=== PATIENT | female | born 1950 | race Caucasian/White ===

== ENCOUNTER 2020-09-24 08:03 | Emergency (ER) | payer MEDICARE ==
[~2020-09-24] VITALS: Ht 170.2 cm; Wt 148.0 kg
--- NOTE | 2020-09-24 08:25 | NUR ---
This pt is visiting from [facility]. She had a mechanical ground level fall this AM while attempting to get in the shower. States her "right knee gave out." Pt states her daughter assisted her to the ground, denies head trauma. Pt is taking warfarin for PE and filter in her groin. PT has right ankle swelling, bruising and pain. CMS intact. PT connected to all monitors. Foot elevated and ice applied. at bedside. Call light in reach.
[2020-09-24] MEDS ORDERED: ONDANSETRON 2MG/ML, 2ML ONE (08:29)
[2020-09-24] MEDS ORDERED: MORPHINE SULFATE 4 MG/ML, 1ML ONE ×2 (08:30→11:17)
[2020-09-24] MEDS ORDERED: ONDANSETRON 2MG/ML, 2ML IVPush ONE (08:30)
[2020-09-24] MEDS ORDERED: SODIUM CHLORIDE FLUSH 10ML SYR IVF ONE (08:30)
[2020-09-24] MEDS: MORPHINE SULFATE 4 MG/ML, 1ML IVPush PRN ×2 (08:39→11:19)
[2020-09-24 09:13] LABS: BASOPHILS % (AUTO) 1 % (0-1); EOSINOPHILS % (AUTO) 5 % (1-7); LYMPHOCYTES % (AUTO) 24 % (22-44); MEAN CORPUSCULAR HEMOGLOBIN 32.6 pg (27.0-34.8); MEAN CORPUSCULAR HGB CONC 34.4 g/dL (32.4-35.8); MEAN PLATELET VOLUME 8.3 fL (7.4-10.4); MONOCYTES % (AUTO) 5 % (2-9); NEUTROPHILS % (AUTO) 65 % (42-75); PLATELET COUNT 190 x10^3/uL (130-400); RED BLOOD COUNT 4.22 x10^6/uL (3.82-5.3); RED CELL DISTRIBUTION WIDTH 14.2 % (9.6-15.2)
[2020-09-24 09:16] LABS: MD NO
[2020-09-24 09:24] LABS: ALBUMIN 3.3 g/dL (3.4-5.0); ANION GAP 8 mmol/L (5-15); CALCIUM 9.8 mg/dL (8.5-10.1); CHLORIDE 108 mmol/L (98-107)
[2020-09-24 09:28] LABS: ALANINE AMINOTRANSFERASE 22 U/L (12-78); ALKALINE PHOSPHATASE 100 U/L (45-117); BILIRUBIN,TOTAL 0.6 mg/dL (0.2-1.0)
[2020-09-24] MEDS ORDERED: PROPOFOL 10 MG/ML, 20ML IVPush ONE (10:00)
--- NOTE | 2020-09-24 11:35 | NUR ---
Pt's O2 sat noted to drop below 90% on RA after morphine. Pt placed back on 2L O2 NC.
--- NOTE | 2020-09-24 11:48 | NUR ---
Pt awake and alert, drinking water, NADN.
[2020-09-24 13:18] VITALS: BP 167/67
== END 2020-09-24 13:42 | disposition home or self-care (01) ==
LOC: ED 09:17
DX: S82.61XA Displaced fracture of lateral malleolus of right fibula, initial encounter for closed fracture (principal); S82.51XA Displaced fracture of medial malleolus of right tibia, initial encounter for closed fracture; R94.31 Abnormal electrocardiogram [ECG] [EKG]; Z86.718 Personal history of other venous thrombosis and embolism; I48.91 Unspecified atrial fibrillation; Z95.0 Presence of cardiac pacemaker; Z98.61 Coronary angioplasty status; W01.0XXA Fall on same level from slipping, tripping and stumbling without subsequent striking against object, initial encounter; Y93.89 Activity, other specified; Y92.009 Unspecified place in unspecified non-institutional (private) residence as the place of occurrence of the external cause; Y99.8 Other external cause status
CPT/HCPCS: 36415; 71045; 73590; 73600; 80053; 82962; 85025; 93005; 96374; 96375; 96376; 99285; J2270; J2405